=== PATIENT | male | born 1995 | race African-American/Black ===

== ENCOUNTER → 2019-08-21 | Outpatient (CLI) | payer OTHER ==
--- NOTE | 2019-08-22 14:54 | PFTRPT ---
Site: , [address] [place], [address] ID: [id number] Name: AISLINN ACEVEDO Visit Date: 08/21/2019 Second ID: [id number] Referring Doctor: Marin Herring Reviewing Doctor: Mandeep Rowan MD Straight Truck Driver: Angela Huber Age: 23 : 1995 Sex: Male Race: Black Height: 73.00 Inches Weight: 270.00 Lbs BSA: 2.44 Order IDs: [id number] Requested Test(s): <RESP-PFT.DLCO> Diagnosis: Exercise induced bronchospasm test meet the ATS standards for acceptability and repeatability. Pt was given four puffs of albuterol for postbronchodilator. Review Status: Not Reviewed Pre-Bronch Post-Bronch Pred Actual %Pred Actual %Chng SPIROMETRY FVC (L) 5.10 5.72 112 5.48 -4 FEV1 (L) 4.28 4.58 107 4.68 2 FEV1/FVC (%) 85 80 94 85 6 FEF 25% (L/sec) 9.61 7.30 75 8.41 15 FEF 50% (L/sec) 6.39 5.50 86 5.62 2 FEF 75% (L/sec) 2.49 2.09 83 2.39 14 FEF 25-75% (L/sec) 4.65 4.43 95 4.80 8 FEF Max (L/sec) 10.57 8.12 76 8.82 8 FIVC (L) 5.65 5.19 -8 FIF 50% (L/sec) 5.61 2.85 50 4.61 61 FIF Max (L/sec) 4.39 5.25 19 MVV (L/min) 194 128 66 Expiratory Time (sec) 7.20 6.87 -4 Back Extrap Vol (L) 0.13 0.15 15 Time To FEFmax (sec) 0.113 0.109 -3 LUNG VOLUMES SVC (L) 5.79 5.68 98 IC (L) 3.80 3.99 104 ERV (L) 1.99 1.69 84 TGV (L) 3.69 3.28 88 RV (Pleth) (L) 1.70 1.60 93 TLC (Pleth) (L) 7.49 7.27 97 RV/TLC (Pleth) (%) 22 22 99 DIFFUSION DLCOunc (ml/min/mmHg) 37.51 35.25 93 DLCOcor (ml/min/mmHg) 37.51 36.31 96 DL/VA (ml/min/mmHg/L) 5.01 5.14 102 VA (L) 7.49 7.06 94 BHT (sec) 10.29 IVC (L) 5.50 TLC (SB) (L) 7.21 AIRWAYS RESISTANCE Raw (cmH2O/L/s) 1.45 1.28 88 Gaw (L/s/cmH2O) 1.03 0.79 76 sRaw (cmH2O*s) 4.76 3.77 79 sGaw (1/cmH2O*s) 0.20 0.27 134 BLOOD GASES Hgb (gm/dL) 13.6
== END ==
LOC: M CARPUL 07:28
PROVIDERS: ATTEND Physician Assistant Medical
DX: J98.01 Acute bronchospasm (principal)

== ENCOUNTER → 2019-08-26 | Outpatient (CLI) | payer OTHER ==
[~2019-08-26] MED LIST: METHACHOLINE KIT (J7674) INH ONE
--- NOTE | 2019-08-26 08:43 | PFTRPT ---
Height: 73.00 Inches Weight: 270.00 Lbs BSA: 2.44 Diagnosis: SOB DATE OF STUDY: 08/26/2019 ORDERING PROVIDER: Marin Herring INTERPRETATION: Study of excellent technical quality. Under protocol, methacholine was administered. At a dose of 10 mg or 63.875 CDUs, a 32% decline in the FEV1 was noted. PC of 3.98 is significant. Flow rates did return to baseline post bronchodilator administration. IMPRESSION: Positive methacholine challenge study. MTDD
== END ==
LOC: M CARPUL 07:47 → EDUNIT# 08:00
PROVIDERS: ATTEND Physician Assistant Medical
DX: J45.990 Exercise induced bronchospasm (principal)
CPT/HCPCS: 94070; J7674